=== PATIENT | female | born 1975 | race Caucasian/White ===

== ENCOUNTER → 2018-03-11 | Outpatient (CLI) | payer SELFPAY | LOC: COL.RAD 10:23 | DX: R93.0 Abnormal findings on diagnostic imaging of skull and head, not elsewhere classified (principal) | CPT/HCPCS: A9585 ==

== ENCOUNTER 2020-02-16 07:08 | Day surgery (SDC) | payer MEDICAID ==
[~2020-02-16] VITALS: Ht 167.6 cm; Wt 83.0 kg
[~2020-02-16 07:08] MED LIST: ASPIRIN 81M81 MG/TA2 PO; EFFEXOR 75M75 MG/TAB PO; FLEXERIL5 MG PO; IBUPROFEN800 MG PO; LORTAB 10/500 51 TAB PO; NORCO 325 MG-51 TAB PO; NORCO 325 MG-7.1 TAB PO; OXYCONTIN15 MG PO; PEPCID 20MG TAB20 MG PO; PLAVIX 75MG TAB75 MG PO; PRINIVIL10 MG PO; TOPROL XL 25MG25 MG PO; TYLENOL 500MG500 MG PO
[2020-02-16 07:39] VITALS: BP 130/70; PULSE 70; TEMP 98.2
--- NOTE | 2020-02-16 07:50 | NUR ---
TO RM 1, CALL LIGHT IN REACH
[2020-02-16 10:40] VITALS: BP 121/80; PULSE 57
--- NOTE | 2020-02-16 10:40 | NUR ---
TO RM 1 PER OWN WILL STEADY GAIT. ALERT ORIENTED X3, TALKING TO STAFF. EATING ICE CHIPS AND TOLERATING WELL. OPERATIVE LEG ELEVATED AND ICED ORDERED. DENIES PAIN OR DISCOMFORT.
[2020-02-16 10:55] VITALS: BP 113/79; PULSE 70
--- NOTE | 2020-02-16 10:55 | NUR ---
RECEIVED MUFFIN AND COFF/CREAM & SUGAR.
[2020-02-16 11:10] VITALS: BP 115/70; PULSE 67
--- NOTE | 2020-02-16 11:11 | NUR ---
ATE 100% AND TOLERATED WELL. CONTINUES TO DENY PAIN OR DISCOMFORT. ABLE TO WIGGLE TOES ON OPERATIVE FOOT.
--- NOTE | 2020-02-16 11:30 | NUR ---
RECEIVED DICHARGE INSTRUCTIONS AND VERBALIZED UNDERSTANDING. DICONTINUED IV AND INT- CATHETER INTACT. PATIENT GETTING DRESSED.
--- NOTE | 2020-02-16 11:45 | NUR ---
DISCHARGED PER WC BY NURSING STAFF TO PRIVATE CAR IN CARE OF BOYFRIEND PURA.
[2020-02-16 15:26] VITALS: BP 115/77; PULSE 62; TEMP 97.5
== END 2020-02-16 12:00 | disposition home or self-care (01) ==
LOC: SDCO 07:08
DX: Z47.2 Encounter for removal of internal fixation device (principal); I25.2 Old myocardial infarction; I25.10 Atherosclerotic heart disease of native coronary artery without angina pectoris; I10 Essential (primary) hypertension; J40 Bronchitis, not specified as acute or chronic; F32.9 Major depressive disorder, single episode, unspecified; G43.909 Migraine, unspecified, not intractable, without status migrainosus; F17.210 Nicotine dependence, cigarettes, uncomplicated; Z82.62 Family history of osteoporosis; Z79.02 Long term (current) use of antithrombotics/antiplatelets; Z80.9 Family history of malignant neoplasm, unspecified; Z88.1 Allergy status to other antibiotic agents; Z88.8 Allergy status to other drugs, medicaments and biological substances; Z79.82 Long term (current) use of aspirin; Z79.899 Other long term (current) drug therapy; Z95.5 Presence of coronary angioplasty implant and graft; Z98.1 Arthrodesis status
CPT/HCPCS: J1100; J1885; J2250; J2405; J2704; J2795; J3010; J7120

== ENCOUNTER 2021-01-12 22:30 | Emergency (ER) | payer MEDICAID ==
[~2021-01-12] VITALS: Ht 167.6 cm; Wt 82.3 kg
[2021-01-12 22:56] VITALS: BP 115/65
[2021-01-12] MEDS ORDERED: ULTRAM 50MG TAB50 MG (23:00)
[2021-01-13 03:01] VITALS: PULSE 73
== END 2021-01-13 03:01 | disposition home or self-care (01) ==
LOC: COL.ER 22:30
DX: S09.90XA Unspecified injury of head, initial encounter (principal); S01.81XA Laceration without foreign body of other part of head, initial encounter; S50.01XA Contusion of right elbow, initial encounter; I25.10 Atherosclerotic heart disease of native coronary artery without angina pectoris; I10 Essential (primary) hypertension; F17.210 Nicotine dependence, cigarettes, uncomplicated; Z95.9 Presence of cardiac and vascular implant and graft, unspecified; Z88.8 Allergy status to other drugs, medicaments and biological substances; Z79.02 Long term (current) use of antithrombotics/antiplatelets; Z79.899 Other long term (current) drug therapy; Z79.82 Long term (current) use of aspirin; Y04.8XXA Assault by other bodily force, initial encounter